=== PATIENT | male | born 1985 | race Caucasian/White ===

== ENCOUNTER 2017-01-15 06:24 | Emergency (ER) | payer BC ==
--- NOTE | ~2017-01-15 | CT4 ---
[facility] A Service of [facility] / [facility] RADIOLOGY TEXT RESULTS PATIENT: HOME MÁRQUEZ LOCATION: SED : 85 UNIT #: [id number] AGE: [address]: Quan Bruce DO SEX: M ORDER DR: [id number] [place] [id number] E MR#: [id number] Acc #: [id number] NAME: HOME MÁRQUEZ : 1985 SEX: M STUDY DATE/TIME: 01/15/2017 6:44 UNIT: SED ROOM: STUDY DESCRIPTION: CT Abd and Pelv Wo Cont Attending Physician: Quan Bruce D.O. Ordering Physician: Quan Bruce D.O. Primary Care Physician: Primary Care Physician No MEDICAL IMAGING REPORT This report is preliminary unless electronic signature is present. EXAM CT abdomen and pelvis 01/15 HISTORY Right flank and right lower quadrant pain that started at 3:00 this morning. Dysuria. Pain rates 6/10. TECHNIQUE Axial noncontrast images were obtained through the abdomen and pelvis. Multiplanar reformats were obtained. Comparison made with 11/14/2014. This CT exam was performed with one or more of the following radiation dose reduction techniques: automatic exposure control, adjustment of mA and/or kV according to patient size, and iterative reconstruction. FINDINGS Abdomen: Lung bases are clear. Gallbladder is normal. No definite stones are seen in the kidneys. However, there are two tiny approximately 2 mm stones at the right ureterovesical junction. These are not causing any significant obstruction at this time. the solid organs are normal. The unopacified GI tract is normal. No free fluid is seen. Pelvis: The appendix is normal. The remainder of the unopacified GI tract is normal as well. The bladder is otherwise normal. No free fluid. IMPRESSION 1. Two tiny 2 mm stones at the right ureterovesical junction. These are nonobstructing. No other stones are identified. 2. The remainder of the abdomen and pelvis CT is normal. The appendix is normal. [facility] A Service of [facility] RADIOLOGY TEXT RESULTS PATIENT: HOME MÁRQUEZ LOCATION: [facility] [place], [place] : [birth year] UNIT #: [id number] AGE: [address]: Quan Bruce DO SEX: M ORDER DR: Dictated by... Antoine Salas Jr., M.D. THIS IS AN ELECTRONICALLY VERIFIED REPORT Antoine Salas Jr., M.D. at 01/15/2017 10:02 AM TAL/blanca TD: 01/15/2017 07:50 JOB #: [id number] MEDICAL IMAGING REPORT Page 1 of 1
[~2017-01-15 06:24] MED LIST: AMOXICILLIN500 M1 PO; ATARAX PO; BENADRYL25 M1 PO; CLARITIN D PO; FLEXERIL PO; FLONASE 0.05% N16 G1; KEFLEX500 M2 PO; LOTRISONE CREAM45 GM TOP; MEDROL PO; MOTRIN100 MG/5 M PO; NO MEDICATIONS; PREDNISONE PO; VICODIN PO
[2017-01-15 06:44] LABS: URINE SOURCE CLEAN CATCH
[2017-01-15 06:46] LABS: MICRO INDICATED? YES; URINE APPEARANCE CLEAR; URINE BILIRUBIN NEG (NEG); URINE BLOOD 1+ (NEG); URINE COLOR YELLOW; URINE GLUCOSE NEG (NORM); URINE KETONE NEG (NEG); URINE LEUKOCYTE ESTERASE NEG (NEG); URINE NITRATE NEG (NEG); URINE PROTEIN NEG (NEG); URINE UROBILINOGEN 0.2 MG/DL (NORM)
[2017-01-15 06:47] LABS: BASOPHIL# 0.1 X10e3 (0-0.3); DIFF IND NO; EOSINOPHIL# 0.5 X10e3 (0-0.7); HEMATOCRIT 39.4 % (38.0-50.0); HEMOGLOBIN 13.3 gm/dL (13.0-16.0); LYMPHOCYTE% 38.1 % (17.0-45.0); MEAN CELL VOLUME 86.6 FL (83-96); MEAN CORPUSCULAR HEMOGLOBIN 29.2 PG (28-34); MEAN CORPUSCULAR HGB CONC 33.7 g/dL (30-36); MEAN PLATELET VOLUME 8.6 FL (6.5-11.5); MONOCYTE# 0.7 X10e3 (0-1.0); MONOCYTE% 8.6 % (3.0-12.0); NEUTROPHIL# 3.5 X10e3 (1.5-7.1); NEUTROPHIL% 45.3 % (40-75); PLATELET COUNT 273 X10e3 (140-420); RED BLOOD COUNT 4.55 X10e (3.90-5.60); RED CELL DISTRIBUTION WIDTH 13.1 % (11.0-15.5); WHITE BLOOD COUNT 7.8 X10e3 (4.0-10.5)
[2017-01-15 06:54] LABS: CULTURE INDICATED? NO; URINE BACTERIA NEG (NEG); URINE SQUAMOUS EPITHELIAL CELL OCCAS /[HPF]; URINE WBC 0-2 /[HPF] (0-5)
[2017-01-15 07:07] LABS: ALBUMIN SERUM 4.7 g/dL (3.5-5.0); BILIRUBIN,TOTAL 0.3 mg/dL (0.2-2.0); BUN/CREATININE RATIO 23.33; CALCIUM SERUM 9.1 mg/dL (8.4-10.2); CREATININE SERUM 0.9 mg/dL (0.6-1.4); GLOM FILT RATE Estimated 113.4 mL/min (>60)
== END 2017-01-15 07:54 | disposition home or self-care (01) ==
LOC: SED 06:24
PROVIDERS: Emergency Medicine
DX: N20.1 Calculus of ureter (principal); Z87.442 Personal history of urinary calculi
CPT/HCPCS: 36415; 74176; 80053; 81003; 83690; 85025; 96361; 96374; 99284; J1885